=== PATIENT | male | born 1980 | race Caucasian/White ===

== ENCOUNTER 2021-01-24 10:56 | Emergency (ER) | payer SELFPAY ==
[~2021-01-24] VITALS: Ht 190.5 cm; Wt 75.9 kg
[2021-01-24 11:00] VITALS: BP 134/80
[2021-01-24] MEDS ORDERED: IBUPROFEN 400 MG TABLET. PO ONE (11:30)
[2021-01-24] MEDS ORDERED: DIPH,PERTUSS(ACELL),TET VAC/PF 0.5 ML SYRINGE. VAX IM ONE (11:30)
--- NOTE | 2021-01-24 11:55 | PHYS DOC ---
Past History Past Medical History: Other Additional Past Medical Histor: RLS Past Surgical History: Tonsillectomy Additional Smoking Information: pack/day Alcohol Use: Occasionally General Adult EDM: Chief Complaint: LOWEREXTREMITY INJURY HPI: HPI: Patient is a 40-year-old male coming in for pain and wounds to bilateral plantar feet. Patient states he was out with a female last night and she had left him without his shoes or jacket. Patient was walking around outside for at least 3 hours. Patient states he is mostly trying to walk on grass but will run the concrete asphalt some. Because of the time did not want to call anyone to pick him up. Denying any drug or alcohol use. Last tetanus greater than 5 years ago. Patient states he had socks on and is unsure if he punctured anything into his foot. Review of Systems: Review of Systems: All other systems within normal limits except for as noted in the HPI Current Medications: Current Meds: Current Medications Medications (Trade) Dose Ordered Sig/Cisco Start Time Stop Time Status Last Admin Dose Admin Diphtheria/ Pertussis/Tetanus Vacc (ADACEL TDap SYRINGE) 0.5 ml ONCE ONCE 01/24/21 11:30 01/24/21 11:31 DC 01/24/21 11:49 0.5 ML Ibuprofen (Motrin) 800 mg 1X ONCE 01/24/21 11:30 01/24/21 11:31 DC 01/24/21 11:47 800 MG Olanzapine (ZyPREXA ZYDIS) 10 mg 1X STAT 01/24/21 11:27 01/24/21 11:40 DC Allergies: Allergies: Allergies Coded Allergies Type Severity Reaction Last Updated Verified No Known Drug Allergies 01/24/21 No Physical Exam: PE: Constitutional: Well developed, well nourished, no acute distress, non-toxic appearance. [] HENT: Normocephalic, atraumatic, bilateral external ears normal, nose normal. [] Eyes: PERRLA, conjunctiva normal, no discharge. [] Neck: No rigidity, supple, no stridor. [] Cardiovascular: Regular rate and rhythm, brisk cap refill [] Lungs & Thorax: Non labored symmetric respirations, no tachypnea or respiratory distress [] Abdomen: Soft, nondistended. Skin: Warm, dry, no erythema, no rash. Multiple superficial wounds to the plantar aspect of both feet in the heel and ball of the foot. Skin tear on left heel [] Back: Unremarkable Extremities: No deformities, range of motion grossly intact, no lower extremity edema [] Neurologic: Alert and oriented X 3, no focal deficits noted. [] Psychologic: Affect normal, judgement normal, mood normal. [] Current Patient Data: Vital Signs: Vital Signs Date Time Temp Pulse Resp B/P (MAP) Pulse Ox O2 Delivery O2 Flow Rate FiO2 01/24/21 11:00 97.7 81 20 134/80 (98) 98 Room Air EKG: EKG: [] Radiology/Procedures: Radiology/Procedures: EP interpretation:. No osseous deformity, no dislocation. No radiopaque foreign body. Superficial soft tissue avulsion on heel of right foot [] Heart Score: C/O Chest Pain: No Risk Factors: Risk Factors: DM, Current or recent (<one month) smoker, HTN, HLP, family history of CAD, obesity. Risk Scores: Score 0 - 3: 2.5% MACE over next 6 weeks - Discharge Home Score 4 - 6: 20.3% MACE over next 6 weeks - Admit for Clinical Observation Score 7 - 10: 72.7% MACE over next 6 weeks - Early Invasive Strategies Course & Med Decision Making: Course & Med Decision Making Feet soaked in chlorhexidine and water. Stephan Disclaimer: Stephan Disclaimer: This electronic medical record was generated, in whole or in part, using a voice recognition dictation system. Departure Departure: Impression: Primary Impression: Skin excoriation Disposition: 01 DC HOME SELF CARE/HOMELESS Condition: STABLE Referrals: NABEEL HAJI MD (PCP) Patient Instructions: Wound Care, Efmh-[id number] Scripts Acetaminophen With Codeine (ACETAMINOPHEN-COD #4 TABLET) 1 Each Tablet 1 EACH PO PRN Q6-8HRS PRN for PAIN for 3 Days, #12 TAB Prov: SERA NEWTON MD 01/24/21 Ibuprofen (IBUPROFEN) 800 Mg Tablet 1 TAB PO TID PRN for PAIN for 10 Days, #30 TAB Prov: SERA NEWTON MD 01/24/21 SERA NEWTON MD Jan 24, 2021 11:55
[2021-01-24] MEDS ORDERED: NEOMY/BACITR/POLYMYXIN OINT PACKET. TP ONE (12:00)
[2021-01-24] MEDS ORDERED: IBUP800T19 PO (12:18)
[2021-01-24] MEDS ORDERED: ACET-1871 PO (12:18)
--- NOTE | 2021-01-24 12:30 | RAD ---
XR FEET 2 VIEWS Clinical Indication: Reason: foreign body - walking around outside barefoot, peeled skin/bleed Comparison: None. Findings: Left: There is no acute fracture or dislocation. The bony alignment is normal. Mineralization is normal. N o bony erosion. Bipartite medial sesamoid. There is no soft tissue swelling or radiopaque foreign bod y. Right: There is no acute fracture or dislocation. The bony alignment is normal. Mineralization is normal. N o bony erosion. Bipartite medial sesamoid. There is no soft tissue swelling. Question soft tissue inj ury of the heel. There are tiny radiodensities along the skin surface. IMPRESSION: No acute fracture. Electronically signed by: Ervin Hooks MD (01/24/2021 12:27 PM) [id number]
== END 2021-01-24 12:20 | disposition home or self-care (01) ==
LOC: ER 10:56
DX: S90.812A Abrasion, left foot, initial encounter (principal); S90.811A Abrasion, right foot, initial encounter; F17.200 Nicotine dependence, unspecified, uncomplicated; X58.XXXA Exposure to other specified factors, initial encounter; Y93.01 Activity, walking, marching and hiking; Y92.89 Other specified places as the place of occurrence of the external cause; Y99.8 Other external cause status
CPT/HCPCS: 73620; 90471; 90715; 99283